=== PATIENT | female | born 1970 | race Caucasian/White ===

== ENCOUNTER 2018-07-31 | Emergency (ER) | payer MEDICAID, OTHER ==
[2018-07-31] MEDS: HYDROCODONE/APAP (5/325) TAB PO (02:03)
[2018-07-31] MEDS: COLCHICINE 0.6 MG TAB PO ×2 (02:06)
== END 2018-07-31 02:50 | disposition home or self-care (01) ==
LOC: FTE
DX: M13.841 Other specified arthritis, right hand (principal)
CPT/HCPCS: 73130; 73130-RT; 99283-25